=== PATIENT | female | born 1990 | race Caucasian/White ===

== ENCOUNTER 2019-02-21 20:06 | Emergency (ER) | payer BC ==
--- NOTE | 2019-02-21 20:05 | EDPHY ---
H & P Time Seen by Provider: 02/21/19 20:05 Constitutional: Initial Vital Signs Temperature (C) 36.9 C 02/21/19 20:11 Heart Rate 91 02/21/19 20:11 Respiratory Rate 16 02/21/19 20:11 Blood Pressure 146/87 H 02/21/19 20:11 O2 Sat (%) 99 02/21/19 20:11 O2 Delivery Mode Room Air Allergies/Adverse Reactions: latex Allergy (Verified 02/21/19 20:11) tree nut Allergy (Verified 02/21/19 20:11) Home Medications: Medication Instructions Recorded NK [No Known Home Meds] 02/21/19 Medical Decision Making ED Course/Re-evaluation: CHIEF COMPLAINT: Allergic reaction HISTORY OF PRESENT ILLNESS: The patient is a 28 y/o female with a nut allergy arriving via EMS for an allergic reaction today. The patient was eating at a restaurant when she was accidently served walnuts. She immediately had an odd sensation and felt like she was having an allergic reaction. She noticed that her throat was swelling but was not having any breathing difficulty. She took 50mg PO Benadryl, which mildly improved her symptoms. When EMS arrived, the patient started to decompensated. She was given 125mg IV Solu-Medrol, Epinephrine, and an additional 50mg PO Benadryl. She denies having or using an EpiPen. No fever, headache, body aches, lightheadedness, chest pain, heart palpitations, shortness of breath, cough, abdominal pain, urinary or bowel complaints, numbness, paresthesias. REVIEW OF SYSTEMS: A comprehensive 10 system review of systems is otherwise negative aside from elements mentioned in the history of present illness and medical decision making. PHYSICAL EXAM: HR, BP, O2 Sat, RR. Temp noted General Appearance: Alert, well hydrated, appropriate, and non-toxic appearing. Head: Atraumatic without scalp tenderness or obvious injury Eyes: Pupils equal, round, reactive to light and accommodation, EOMI, no trauma , no injection. Ears: Clear bilaterally, no perforation, normal landmarks Nose: Atraumatic, no rhinorrhea, clear. Throat: There is no erythema or exudates, no lesions, normal tonsils, mucus membranes moist. Neck: Supple, 2+ carotid upstroke, nontender, no lymphadenopathy. Respiratory: No retractions, no distress, no wheezes, and no accessory muscle use. Lungs are clear to auscultation bilaterally. Cardiovascular: Tachycardic, no murmurs, rubs, or gallops. Bilateral carotid, radial, dorsalis pedis, and posterior tibial pulses intact. Good capillary refill all extremities. Gastrointestinal: Abdomen is soft, nontender, non-distended, no masses, no rebound, no guarding, no peritoneal signs. Musculoskeletal: Normal active ROM of all extremities, atraumatic. Neurological: Alert, appropriate, and interactive. The patient has normal DTRs and non-focal cranial nerves, motor, sensory, and cerebellar exam. Skin: No rashes, good turgor, no nodules on palpation. Past medical history: Allergies Past surgical history: Denies Family history: Denies Social history: Lives in [place], employed at an [employer], single DIAGNOSTICS/PROCEDURES/CRITICAL CARE TIME: Not indicated. DIFFERENTIAL DIAGNOSIS: The differential diagnosis included but was not limited to angioedema, anaphylaxis, anaphylactoid reaction, urticarial reaction, and other infectious causes for skin rash. MEDICAL DECISION MAKING: The patient is a 28 y/o female with a nut allergy arriving via EMS for an allergic reaction today. The patient was eating at a restaurant when she was accidently served walnuts. She immediately noticed that her throat was swelling but was not having any breathing difficulty. She was given 125mg IV Solu-Medrol , Epinephrine, and 100mg PO Benadryl. Now she is asymptomatic and has no complaints besides a fast heart rate. We will continue to monitor this patient. Labs and imaging are not indicated at this time. 2048: Reassessed patient, she continues to improve. I have prescribed her Pepcid , Prednisone, and an EpiPen. I have also advised her to take Benadryl. Return precautions provided; patient is comfortable with this plan. Departure - Departure Disposition: Home, Routine, Self-Care Clinical Impression: Allergic reaction Qualifiers: Encounter type: initial encounter Qualified Code(s): T78.40XA - Allergy, unspecified, initial encounter Condition: Good Instructions: Food Allergy (ED), Anaphylaxis (ED), Allergies (ED) Additional Instructions: 1. Take Prednisone and Pepcid as prescribed. 2. Follow-up with your primary doctor within 72 hours. 3. Use [id number] Benadryl as directed for itching. 4. Return to the Emergency Department for shortness of breath, difficulty swallowing, difficulty breathing, worsening of rash, fever or other worsening of condition. 5. When symptoms have completely subsided, follow up with an treating plant pumper soon as possible to determine the cause of the allergic reaction. 6. Use EpiPen in case of allergic emergency. Referrals: Patient,NotPresent [Primary Care Provider] - As per Instructions Carmen Fuentes MD [Medical Doctor] - As per Instructions Report Scribed for: Ken Hanna Report Scribed by: Giovanna Lopez Date of Report: 02/21/19 Time of Report: 20:30
[2019-02-21 20:59] VITALS: BP 113/59
== END 2019-02-21 21:16 | disposition home or self-care (01) ==
DX: T78.05XA Anaphylactic reaction due to tree nuts and seeds, initial encounter (principal)